=== PATIENT | male | born 1965 | race Caucasian/White ===

== ENCOUNTER → 2016-06-27 | Outpatient (CLI) | payer BC, OTHER ==
--- NOTE | 2016-06-27 13:27 | CT ---
EXAMINATION TYPE: CT angio chest DATE OF EXAM: 06/27/2016 1:13 PM COMPARISON: Chest x-ray dated same date HISTORY: SOB, R/O PE CT DLP: 388.90 mGycm Automated exposure control for dose reduction was used. CONTRAST: CTA scan of the thorax is performed with IV Contrast, patient injected with 100 ml mL of Omnipaque 35 0, pulmonary embolism protocol. MIP images are created and reviewed. 3D reconstructed images are cr eated on an independent workstation and reviewed. FINDINGS: LUNGS: The lungs are grossly clear, there is no concerning parenchymal mass or nodule identified. T here is no pleural effusion or pneumothorax seen. Minimal bandlike areas of increased attenuation at the lung bases may reflect atelectasis or scar. The tracheobronchial tree is patent. AORTA: Ascending aorta is aneurysmal at 4.1 cm. No additional significant abnormality is seen. Four super aortic branch vessels are present thoracic aorta. Coronary artery calcifications are present. MEDIASTINUM: There is satisfactory enhancement of the pulmonary artery and its branches, there is no CT evidence for pulmonary embolism. There are no greater than 1 cm hilar or mediastinal lymph nodes. No pericardial effusion is seen. OTHER: The liver shows low attenuation likely due to fatty infiltration. IMPRESSION: NO EVIDENT PULMONARY EMBOLISM.
== END | disposition home or self-care (01) ==
LOC: RADCTMAIN 12:35
PROVIDERS: ATTEND Internal Medicine Critical Care Medicine
DX: I71.2 Thoracic aortic aneurysm, without rupture (principal)
CPT/HCPCS: 71275; Q9967

== ENCOUNTER → 2016-08-03 | Outpatient (CLI) | payer OTHER ==
--- NOTE | 2016-08-03 12:08 | CONS ---
DATE OF CONSULTATION: 08/03/2016 CONSULTATION/NEW PATIENT EVALUATION: A 51-year-old gentleman who has been evaluated in the [facility] for history of oxygen desaturation during the sleep and for possible obstructive sleep apnea-hypopnea syndrome. HISTORY OF PRESENT ILLNESS/SLEEP-WAKE EVALUATION: SLEEP SCHEDULE: Patient's usual sleep schedule is from 11 p.m. to 8 a.m. FALLING ASLEEP: Patient usually falling asleep without problems. He uses oxygen 2 L/min for several years after he was found oxygen desaturation during sleep in the past hospital. No TV in bedroom. DURING SLEEP: He sleeps on the side position. Wakes up from sleep 2 times with one episode of nocturia and has history of, palpitations and sweating during sleep. He sleeps by himself. No clear information about snoring at the present time. DURING THE DAY/WAKE STATE: In the morning, patient wakes up tired, has difficulties to pay attention, has problem with concentration and anxiety. [place] Sleepiness Scale is 3. PAST MEDICAL HISTORY: Positive for depression and anxiety, opiates usage, mostly in the way of pills. PAST SURGICAL HISTORY: Vasectomy, hernia repair. SOCIAL HISTORY: Positive for smoking for 10 years about 1 pack a day, quit yesterday. Alcohol consumption red wine presently occasional. MEDICATIONS: Lisinopril, Lexapro, aspirin, Methadone, fish oil, multivitamins, Co Q-10, other different supplements. REVIEW OF SYSTEMS: Awakenings from sleep; feels tiredness and sleepiness during the day. FAMILY HISTORY: Hypertension, heart problems, hyperlipidemia, lung problems, cancer, insomnia, mental illness, restless legs. During physical exam, a 51-year-old gentleman without distress. BP 112/74, HR 62, RR 16. Height 5, 7-1/2, weight 209. BMI 32.2. Neck 16 inches. Temp 98.2, oxygen saturation at room air 94%. Oropharynx moderately to extremely low position of soft palate. Small nasal passages. Some changes of the skin of the arms secondary to infection in the past. NECK: Supple. No JVD. Thyroid is not palpable. LUNGS: Clear to percussion and to auscultation. Good air exchange. No wheezing or rhonchi. HEART: S1, S2 regular. ABDOMEN: Soft and nontender. Bowel sounds are present. No organomegaly appreciated. TRAFFIC LAW ATTORNEY: Awake, alert, and oriented x3. Cranial nerves 2 to 7 intact. There is no fasciculation or atrophy noted. No focal deficits observed. IMPRESSION: 1. Awakenings from sleep with nocturia, low position of soft palate, history of oxygen desaturation during the sleep. Patient is on oxygen supplement, possible obstructive sleep apnea-hypopnea syndrome. 2. Obesity; body mass index of 32.2. 3. Hypertension. 4. Depression and anxiety. 5. History of opiate usage, presently on treatment with methadone program. 6. Status post hernia repair. 7. Status post vasectomy. PLAN: 1. Polysomnography for evaluation of patient's breathing during sleep. 2. CPAP/BiPAP titration if sleep study confirms obstructive sleep apnea-hypopnea syndrome. 3. Preferable position during sleep on the side. 4. No driving if patient feels any sleepiness. Patient is aware of civil and criminal liability for unsafe driving. 5. I will see patient for follow-up visit to explain results of the testing and following plan. 6. Patient recently had results of echocardiogram, we will review these results. Thank you very much for referring this patient for consultation. Sincerely, Toney Salvador MD, PhD, FAASM. Diplomat of [place] [employer], Sleep Medicine Board by [employer] Sales Representative of [facility] [place]
== END | disposition home or self-care (01) ==
LOC: SLEEP 10:29
PROVIDERS: ATTEND Internal Medicine
DX: R35.1 Nocturia (principal); I10 Essential (primary) hypertension; F32.9 Major depressive disorder, single episode, unspecified; F41.9 Anxiety disorder, unspecified; E66.9 Obesity, unspecified; Z68.32 Body mass index [BMI] 32.0-32.9, adult; Z87.891 Personal history of nicotine dependence; Z98.52 Vasectomy status; Z98.890 Other specified postprocedural states; Z99.81 Dependence on supplemental oxygen; Z79.82 Long term (current) use of aspirin; Z79.899 Other long term (current) drug therapy
CPT/HCPCS: 99211

== ENCOUNTER → 2016-11-02 | Outpatient (CLI) | payer OTHER ==
--- NOTE | 2016-11-09 15:02 | PN ---
DATE OF SERVICE: 11/02/2016 A 51-year-old gentleman who has been followed in the Sleep Center for treatment of obstructive sleep apnea-hypopnea syndrome. Recently patient had diagnostic sleep study and CPAP titration and I discussed results of the test with patient in details. Apnea-hypopnea index 62 with oxygen desaturation 77.8% . On the pressure of 15, apnea-hypopnea index reduced to 5.9 during titration. Patient started treatment with CPAP, brought his CPAP unit. I checked his CPAP unit. CPAP pressure is 15 cm of water, ramp is 5 minutes. Humidity at 6. Patient using equipment only 3 out of 3 nights for more than 4 hours. Leak is significant 36 L/min . Apnea-hypopnea index increased to 15. Patient is on oxygen supplement on home. During physical exam, patient in no distress. BP 111/76, HR 59, RR 18, weight 212.6, temp 98.1, body mass index 32.2. Restriction of nasal breathing. OROPHARYNX: Moderately low position of soft palate. ABDOMEN: Obese. NECK: Supple. No JVD. Thyroid is not palpable. LUNGS: Clear to percussion and to auscultation. Good air exchange. No wheezing or rhonchi. HEART: S1, S2 regular. No murmurs, gallops, or rubs. ABDOMEN: Soft and nontender. Bowel wounds are present. No organomegaly appreciated. EXTREMITIES: No clubbing or cyanosis. TORTILLA MAKER: Awake, alert and oriented x3. Cranial nerves 2 to 7 intact. There is no fasciculation or atrophy noted. No focal deficits observed. IMPRESSION: 1. Severe obstructive sleep apnea-hypopnea syndrome, apnea-hypopnea index 62 with oxygen desaturation to 77.8%. Presently patient not compliant with CPAP therapy. 2. Obesity. 3. Hypertension. 4. Depression. 5. Anxiety. 6. Status post hernia repair. 7. Status post opioid usage presently on treatment with methadone. 8. Status post lobectomy. PLAN: 1. Prescription for chin strap. 2. Use CPAP equipment every night for the whole night with a full face mask. 3. Watching and losing weight. 4. Sleep hygiene with regular time in bed for at least 8 hours. 5. No driving if feeling any sleepiness. 6. Follow up visit in one month. Thank you very much for allowing me to participate in the management of your patient. Sincerely, Toney Salvador MD, PhD, FAASM Diplomat of [place] [employer], Sleep Medicine Board by [employer] [employer] Medical Direct of [facility]
== END | disposition home or self-care (01) ==
LOC: SLEEP 15:48
PROVIDERS: ATTEND Internal Medicine
DX: G47.33 Obstructive sleep apnea (adult) (pediatric) (principal); E66.9 Obesity, unspecified; I10 Essential (primary) hypertension; F32.9 Major depressive disorder, single episode, unspecified; F41.9 Anxiety disorder, unspecified

== ENCOUNTER → 2017-06-28 | Outpatient (CLI) | payer OTHER ==
--- NOTE | 2017-06-28 13:20 | SFUN ---
SLEEP STUDY FOLLOW UP NOTE DATE OF SERVICE: 06/28/2017 This 52-year-old gentleman has been followed in sleep center for treatment of severe obstructive sleep apnea-hypopnea syndrome. Originally apnea-hypopnea index 62. The patient continued to use his CPAP equipment close to 1 year from now, but recently because his mask was broken he was not able to use his CPAP. I checked CPAP machine. CPAP pressure is 15 cm of water. Usage was done for 171 days in 77 days more than 4 hours. Average usage of 3.9 hours or usage of close to 4 hours, but sometimes a little bit less than 4 hours. Leak for the year 37 L/minute. Apnea-hypopnea index reading for the year is 9.4 with a pressure of 15. Machine did not indicate is it obstructive or central events. [place] Sleepiness Scale today is 17. MEDICATIONS: Lisinopril, Lexapro, methadone and Advair. PHYSICAL EXAM: During physical exam, patient in no distress. VITAL SIGNS: BP 114/76, HR 70, RR 16, height 5 feet 7 inches, weight 207, BMI 32.4, temperature 98.6, oxygen saturation room in air 95%. The patient a weight is 2 pounds down since the previous sleep study. HEENT: PERRLA, EOMI. The oropharynx moderately low position of soft palate. NECK: Supple, no JVD. Thyroid is not palpable. LUNGS: Clear to percussion and to auscultation. Good air exchange. No wheezing or rhonchi. HEART: S1, S2 regular. No murmurs, gallops, or rubs. ABDOMEN: Obese. EXTREMITIES: No clubbing or cyanosis. WARDROBE TECHNICIAN: Awake, alert, and oriented X3. Cranial nerves 2 to 7 intact. There is no fasciculation or atrophy. noted. No focal deficits observed. IMPRESSION: 1. Severe obstructive sleep apnea-hypopnea syndrome. The patient cannot use his CPAP equipment presently because his CPAP mask was broken. Reading from the machine indicates that benefitting from treatment. 2. Obesity. 3. Hypertension. 4. Depression. 5. Anxiety. 6. History of opioid use, presently on methadone program. 7. Status post lobectomy. 8. Status post hernia repair. PLAN: 1. Patient will continue to use his CPAP equipment every night. 2. Prescription for all necessary CPAP supplies including mask, tube, filters. 3. Losing weight. 4. Sleep hygiene with regular time in bed for at least 8 hours. Thank you very much for allowing me to participate in management of your patient. Sincerely, Toney Salvador MD, PhD, FAASM Diplomat of [place] [employer] [place] [employer] Specialist of [facility] [place] MMARDEN / JOO: [id number] /
== END | disposition home or self-care (01) ==
LOC: SLEEP 11:55
PROVIDERS: ATTEND Internal Medicine
DX: G47.33 Obstructive sleep apnea (adult) (pediatric) (principal); E66.9 Obesity, unspecified; I10 Essential (primary) hypertension; F32.9 Major depressive disorder, single episode, unspecified; F41.9 Anxiety disorder, unspecified; Z68.32 Body mass index [BMI] 32.0-32.9, adult; Z90.2 Acquired absence of lung [part of]; Z98.890 Other specified postprocedural states